=== PATIENT | female | born 1950 | race Caucasian/White ===

== ENCOUNTER 2017-03-31 17:33 | Outpatient (CLI) | payer OTHER, BC ==
[~2017-03-31 17:33] MED LIST: ACCOLATE20 MG; ACCOLATE20 MG PO; ADVAIR DISKU1 INH; ADVIL200 M1 PO; ARMOUR THYROID15 MG; AUGMENTIN875 MG PO; CELEBREX200 MG; COUMADIN2.5 MG PO; COUMADIN5 MG PO; COZAAR25 MG PO; CRESTOR20 MG; HYDROCHLOROTHIA25 MG PO; IRON325 MG PO; KLOR-CON 1010 MEQ PO; KLOR-CON M2020 MEQ PO; LASIX20 MG PO; LEVEMIR FL100 UNIT/M SC; LEVOTHYROXINE50 MCG PO; LOVENOX100 MG/ML SC; METFORMIN HCL500 MG PO; MORPHINE SULFA100 M2 PO; MORPHINE SULFAT15 M1 PO; NOVOLOG PE100 UNITS/ SC; OXYCODONE HCL5 MG PO; PREVACID15 MG PO; PRILOSEC20 MG; SLOW-MAG PO; STOOL SOFTENER100 M1 PO; ZOFRAN ODT4 MG PO; [UNRECOGNIZED DRUG - CODE] PO
--- NOTE | 2017-03-31 18:02 | DIAGNOSTIC IMAGING REPORT ---
PROCEDURE: CT HEAD WITHOUT CONTRAST INDICATION: HEADACHES TECHNIQUE: Axial CT images were acquired through the head. Coronal and sagittal reformations were created. COMPARISON: None. FINDINGS: No intracranial hemorrhage or extraaxial fluid collections. Ventricles are normal in size, shape and position. There is no mass, mass effect or midline shift. The ledezma-white matter differentiation is normal. There is no edema. The calvarium is intact. The paranasal sinuses and mastoid air cells are normally aerated. The extracranial soft tissues and orbits are normal. IMPRESSION: 1. No CT evidence of acute intracranial process. 2. Findings discussed with Dr. Beard at 06:[address] Ware. All CT scans at this facility use dose modulation, iterative reconstruction, and/or weight-based dosing when appropriate to reduce radiation dose to as low as reasonably achievable.
== END 2017-03-31 23:00 | disposition home or self-care (01) ==
LOC: CT SRH 17:33
DX: R51 Headache (principal)